=== PATIENT | female | born 1960 | race Caucasian/White ===

== ENCOUNTER 2017-02-08 14:30 | Inpatient (IN) | payer MEDICARE ==
[~2017-02-08] VITALS: Ht 157.5 cm; Wt 81.4 kg
--- NOTE | ~2017-02-08 | CON ---
PATIENT'S NAME: JANN LAUREN [facility] AGE: 56 Y [address] ROOM: [place] [address] LOCATION: GICU ADMIT DATE: 02/08/2017 Consultation DISCHARGE DATE: FAMILY PHYSICIAN: , VENANCIO ATTENDING PHYSICIAN: SNEHA RAMIREZ DATE OF CONSULTATION: 02/09/2017 REFERRING PHYSICIAN: Moreno Medina MD REASON FOR CONSULTATION: Abdominal pain, diarrhea, history of right colectomy status post perforation. HISTORY OF PRESENT ILLNESS: This is a 56-year-old female with past medical history of hypertension, COPD, chronic narcotic dependence as well as history of right colectomy in 2011 from perforation. The patient presented to [facility] with drowsiness, diaphoresis, acute abdominal pain, and diarrhea for the past 48 hours. This was associated with fever and chills as well. She describes her abdominal pain as sharp in character located on the left upper and lower quadrants, also associated with multiple episodes of loose stool without any noticeable blood per her recollection. She denies any associated chest pain, chest pressure, or shortness of breath. In review of the patient's history, she did undergo a right colectomy secondary to perforation in 12/2011; in 01/2015, she did undergo an upper endoscopy with biopsy. Upper GI series and small-bowel series completed in 2011 were also negative for Crohn's. Stool workup has been completed that currently is negative at this time including C. diff. The patient was transferred to [facility] for definitive care. PAST MEDICAL HISTORY: Diverticulosis, COPD, hypertension, hyperlipidemia, incisional hernia, chronic pain syndrome, history of right colectomy secondary to perforation, and status post right colectomy. SOCIAL HISTORY: The patient is a half pack lifelong smoker, occasional alcohol use. She is on prescription narcotics as well as benzodiazepines. FAMILY HISTORY: Significant for multiple strokes in the patient's mother. She denies any known gastrointestinal diseases or cancers. ALLERGIES: ADHESIVE TAPE. CURRENT MEDICATIONS: PATIENT'S NAME: JANN LAUREN [facility] AGE: 56 Y [address] ROOM: [place] [address] LOCATION: GICU ADMIT DATE: 02/08/2017 Consultation DISCHARGE DATE: FAMILY PHYSICIAN: PHYSICIAN, UNKNOWN ATTENDING PHYSICIAN: SNEHA RAMIREZ Please refer to the medication administration record. REVIEW OF SYSTEMS: All-point review of systems was completed. All were negative except for those identified in the history of present illness. PHYSICAL EXAMINATION: GENERAL: A pleasant 56-year-old female, lying in bed, who appears to be in no acute distress. VITAL SIGNS: Temperature 98.7, pulse of 99, respirations of 22, blood pressure 102/62, and oxygen saturations 90% on 2 L. SKIN: [place], warm, and dry. No jaundice. HEENT: Head is normocephalic and atraumatic. Pupils are equal, round, and reactive to light. Sclerae are clear. Nonicteric. Oral mucosa is pink and moist. No thyromegaly. NECK: Soft and supple. CARDIOVASCULAR: Regular. Normal S1 and S2. RESPIRATORY: Respirations even and unlabored. LUNGS: Clear to auscultation. ABDOMEN: Soft. Mildly distended. Tender in the left lower quadrant as well as the left upper quadrant. Incisional hernia present. Bowel sounds are positive. MUSCULOSKELETAL: No muscle weakness or atrophy. EXTREMITY: No edema. NEUROLOGIC: Grossly nonfocal. LABORATORY DATA AND DIAGNOSTIC DATA: White blood cell count of 23.7, hemoglobin of 12.5, hematocrit of 38.1, and platelets of 255. Chemistry panel includes a glucose of 126, BUN of 37, creatinine of 1.7, sodium 137, potassium 4.2, chloride 105, CO2 of 20, albumin of 2.3, AST of 111, ALT of 47, alkaline phosphatase of 161, and total bilirubin is 0.4. CRP of 25.60. KUB also completed, did show air-filled stomach. The stomach does not appear to be distended. No distention in small bowel loops or colon identified. ASSESSMENT AND PLAN: Again, this is a very pleasant 56-year-old female, who was admitted with severe sepsis secondary to possible infectious gastroenteritis. Suspicious for the patient having ischemic versus more likely infectious colitis with guarding. Stool workup has been negative including C. diff, though white blood cell count is elevated. The patient also has a history of right colectomy with perforation. No history of ulcerative colitis or Crohn's disease as the patient did have an upper GI and small bowel series that was negative. At this time, we agree with continuing IV Flagyl and antibiotics. If the patient becomes nauseated or vomits, NG tube should be placed. Also, suspicion for gastroparesis PATIENT'S NAME: JANN LAUREN [facility] AGE: 56 Y [address] ROOM: [address] [address] LOCATION: CU ADMIT DATE: 02/08/2017 Consultation DISCHARGE DATE: FAMILY PHYSICIAN: PHYSICIAN, UNKNOWN ATTENDING PHYSICIAN: SNEHA RAMIREZ secondary to sepsis with the patient's finding of air-filled stomach. Once stable, we do recommend possible sigmoidoscopy versus colonoscopy for further evaluation. We will obtain a KUB in the morning as well as lab. Reglan 10 mg IV push will be given x1 for assistance of the findings of the patient's KUB. Further recommendations to be given over the course of the patient's hospitalization. KAPIL BERG APRN FOR [employer] MD MMF/modl /[id number] d: 02/10/17 1140 t: 02/18/17 0741, CONSULTATION REPORT
--- NOTE | ~2017-02-08 | ENPV ---
Vascular Lower Extremities DVT Study Procedure Demographics Patient Name JANN LAUREN Date of Study 02/09/2017 Patient Number [id number] Gender Female Date of 1960 Age 56 Visit Number [id number] Height Accession Number [id number] Weight Room Number G6231 BSA BMI Referring Deandre Borjas Interpreting Theron Lee MD Physician Physician Physician Ordering Deandre Borjas Workforce Manager Physician [employer] Leia Kennedy T Conclusions Summary No evidence of deep vein thrombosis or superficial thrombophlebitis in the lower extremities bilaterally . Procedure Type of Study: Veins:Lower Extremities DVT Study, Venous Duplex Lower Extremity Bilateral. Indications for Study:Tachycardia. Additional Indications:hypoxia Appropriate Use Criteria:9 Allergies - No known allergies. Patient Status:Routine. Study Location:Inpatient Portable. Technical Quality:Adequate visualization. Velocities are measured in cm/s ; Diameters are measured in cm Right Lower Extremities DVT Study Measurements Right 2D and Doppler Measurements + + + + +------+------+ + !Location !Visualized!Compressibility!Thrombosis!Signal!Reflux!Reflux ! ! ! ! ! ! ! !(sec) ! + + + + +------+------+ + !GSV Thigh !Yes !Yes !None !Phasic!No ! ! + + + + +------+------+ + !Common !Yes !Yes !None !Phasic!No ! ! !Femoral ! ! ! ! ! ! ! + + + + +------+------+ + !Prox !Yes !Yes !None !Phasic!No ! ! !Femoral ! ! ! ! ! ! ! + + + + +------+------+ + !Mid Femoral!Yes !Yes !None !Phasic!No ! ! + + + + +------+------+ + !Dist !Yes !Yes !None !Phasic!No ! ! !Femoral ! ! ! ! ! ! ! + + + + +------+------+ + !Popliteal !Yes !Yes !None !Phasic!No ! ! + + + + +------+------+ + !Gastroc !Yes !Yes !None !Phasic!No ! ! + + + + +------+------+ + !PTV !Yes !Yes !None !Phasic!No ! ! + + + + +------+------+ + !Peroneal !Yes !Yes !None !Phasic!No ! ! + + + + +------+------+ + Left Lower Extremities DVT Study Measurements Left 2D and Doppler Measurements + + + + +------+------+ + !Location !Visualized!Compressibility!Thrombosis!Signal!Reflux!Reflux ! ! ! ! ! ! ! !(sec) ! + + + + +------+------+ + !GSV Thigh !Yes !Yes !None !Phasic!No ! ! + + + + +------+------+ + !Common !Yes !Yes !None !Phasic!No ! ! !Femoral ! ! ! ! ! ! ! + + + + +------+------+ + !Prox !Yes !Yes !None !Phasic!No ! ! !Femoral ! ! ! ! ! ! ! + + + + +------+------+ + !Mid Femoral!Yes !Yes !None !Phasic!No ! ! + + + + +------+------+ + !Dist !Yes !Yes !None !Phasic!No ! ! !Femoral ! ! ! ! ! ! ! + + + + +------+------+ + !Popliteal !Yes !Yes !None !Phasic!No ! ! + + + + +------+------+ + !Gastroc !Yes !Yes !None !Phasic!No ! ! + + + + +------+------+ + !PTV !Yes !Yes !None !Phasic!No ! ! + + + + +------+------+ + !Peroneal !Yes !Yes !None !Phasic!No ! ! + + + + +------+------+ + Impressions Left Impression Enlarged lymph node in left groin measuring 1 x .75 cm. Signature dtt: HARLEY GALLOWAY dtbrooke: 02/09/17 134 Physician Self Edit
--- NOTE | ~2017-02-08 | DS ---
PATIENT'S NAME: SALOMÓNLiv [facility] AGE: 56 Y [address] ROOM: [id number] [place], [place] [address] LOCATION: GICU ADMIT DATE: 02/08/2017 Discharge Summary DISCHARGE DATE: 02/13/2017 FAMILY PHYSICIAN: Yenny Espinoza PA-C ATTENDING PHYSICIAN: Sera Carrera ADMISSION DIAGNOSIS: Severe sepsis secondary to infectious colitis. DISCHARGE DIAGNOSIS: Severe sepsis secondary to infectious colitis. SECONDARY DIAGNOSES: 1. Hypoxic respiratory failure, resolved. 2. Severe sepsis, has resolved. 3. Acute renal failure secondary to sepsis, resolving. 4. Anterior abdominal wall hernia. 5. Anxiety disorder. 6. Tobacco dependence. 7. Chronic pain disorder. PROCEDURES PERFORMED: Flexible sigmoidoscopy February 13, 2017 revealing extensive pseudomembranous colitis. CONSULTATIONS: Dr. Casanova of GI, also General Surgery. PRESENTING COMPLAINTS: The patient is a pleasant 56-year-old female with a history of known hypertension, COPD, and narcotic dependence who presented to [facility] with drowsiness, diaphoresis, abdominal pain, and diarrhea for greater than 48 hours. This was associated with fevers and chills. Prior to transfer, the patient was noted to have a white blood cell count of 41,000, hemoglobin of 14, creatinine of 2.7, and a CAT scan showing left colonic wall thickening. Upon transfer, she was deemed to be in severe sepsis and admitted initially to the ICU for treatment of her acute kidney injury as well as hypoxic respiratory failure on COPD. HOSPITAL COURSE: Upon admission, the patient was initially started on Zosyn with vancomycin and Flagyl and repeat labs were ordered following initial volume resuscitation at outside facility. Cultures were obtained. On hospital day 2, the patient was noted to be improving slowly and changed to Meropenem and vancomycin. C. diff testing was negative. Stool culture also negative. On February 11, the patient was noted to have passed small amount of blood per rectum with slight drop in hemoglobin which could have also been secondary to IV hydration. However, in order to rule out small bowel obstruction with ongoing abdominal pain, a CT was ordered. This showed mild circumferential bowel wall thickening involving descending and sigmoid colon as well as a low anterior abdominal wall hernia containing loops of bowel with [facility]GE: 56 Y [address] ROOM: [id number] [place], [place] [address] LOCATION: GICU ADMIT DATE: 02/08/2017 Discharge Summary DISCHARGE DATE: 02/13/2017 FAMILY PHYSICIAN: Yenny Espinoza PA-C ATTENDING PHYSICIAN: Sera Carrera no evidence of obstruction or bowel wall thickening as well as a previous right hemicolectomy and no evidence of small bowel obstruction. The patient was maintained on Flagyl and transitioned to ertapenem and begun to advance diet on the to clears with improving abdominal pain. The sepsis at this point had resolved. On date of discharge, the patient underwent flexible sigmoidoscopy showing extensive pseudomembranous colitis with rare normal mucosa. Plans at that time per GI were to monitor patient inhouse one more night after transitioning to oral antibiotics to include Levaquin and Flagyl. However, upon discussing this with the patient, she became very tearful stating that she felt much improved, and given ongoing stability of vital signs, decreasing abdominal pain, decreasing of diarrhea, and improving white count and renal function, discussion was had with GI about discharging on the . Ultimately given the patient's desire to discharge, this was a determined plan. The patient was discharged with a 14-day course of Levaquin and Flagyl. Levaquin dosage 750 q.24 hours based on her creatinine clearance of 50 upon discharge just above cut of level with an improving renal function. Creatinine 1.6 on discharge. This will need to be followed up with the PCP early next week with a BMP to ensure adequate dosing. Dr. Casanova will see the patient in GI Clinic in 10 to 14 days as well for followup prior to cessation of antibiotics. CONDITION: Stable. VITAL SIGNS: Last vital signs on the date of discharge, temperature 98.2, pulse 72, respirations 16, blood pressure 111/65, saturating 92% on room air. PERTINENT MEDICATION CHANGES: Upon discharge, the patient's home amlodipine and RAIN inhibitor were both held to be resumed at a later date per PCP as well as new antibiotics as described above. Otherwise, continued all home meds upon discharge. DISCHARGE INSTRUCTIONS: Advance diet as tolerated. Activity as tolerated. FOLLOWUP: With PCP and GI as already established above. TIME: I spent greater than 35 minutes on date of discharge determining care, plan, and preparing for discharge. MD MELY CLIFFORD/nicolasa PATIENT'S NAME: JANN LAUREN [facility] AGE: 56 Y [address] ROOM: [place] [address] LOCATION: CU ADMIT DATE: 02/08/2017 Discharge Summary DISCHARGE DATE: 02/13/2017 FAMILY PHYSICIAN: Yenny Espinoza PA-C ATTENDING PHYSICIAN: Sera Carrera /[id number] d: 02/14/17 0545 t: 02/14/17 1543, DISCHARGE SUMMARY
--- NOTE | ~2017-02-08 | CON ---
PATIENT'S NAME: JANN LAUREN [facility] AGE: 56 Y [address] ROOM: [place] [address] LOCATION: GICU ADMIT DATE: 02/08/2017 Consultation DISCHARGE DATE: FAMILY PHYSICIAN: PHYSICIAN, UNKNOWN ATTENDING PHYSICIAN: SNEHA RAMIREZ A CHIEF COMPLAINT: Fever and diarrhea. HISTORY OF PRESENT ILLNESS: The patient was admitted on 02/08/2017 for sepsis secondary to what was thought to be infectious gastritis/gastroenteritis. Daily abdominal x-rays have been taken with today's x-ray showing possible concern for small bowel obstruction. Surgery team was consulted for this reason. The patient says that she had onset on Friday of generalized abdominal pain, but denies any nausea or vomiting at that time. She did have fever at home. She has had loose stools for the past several days up to a week. She has a history of right colectomy secondary to perforations in 2011, at that time, a negative workup for Crohn's or UC (perforation though to be due to C. Diff). The patient's labs since admission have been slowly improving. Concern for this new small bowel obstruction secondary to radiological findings. The patient reports positive flatus and bowel movement today. PAST MEDICAL HISTORY: 1. Diverticulosis. 2. COPD. 3. Hypertension. 4. Hyperlipidemia. 5. Incisional hernia. 6. Chronic pain syndrome. 7. History of right colectomy. SOCIAL HISTORY: One-half pack per day, lifelong smoker. Occasional alcohol use. FAMILY HISTORY: Mother, strokes. ALLERGIES: ADHESIVE TAPE. CURRENT MEDICATIONS: See medication file. PATIENT'S NAME: JANN LAUREN [facility] AGE: 56 Y [address] ROOM: [id number] [place] [address] LOCATION: GICU ADMIT DATE: 02/08/2017 Consultation DISCHARGE DATE: FAMILY PHYSICIAN: PHYSICIAN, UNKNOWN ATTENDING PHYSICIAN: SNEHA RAMIREZ A REVIEW OF SYSTEMS: GENERAL: Positive fever and chills. Negative changes in weight. HEENT: No acute vision changes. No difficulty swallowing. CARDIAC: No chest pain or palpitations. PULMONARY: Chronic cough and oxygen use. ABDOMEN: Positive for pain and diarrhea, history of right colectomy. EXTREMITIES: No decreased range of motion. NEUROLOGICAL: No focal deficits. LABORATORY DATA: White count 17.9, down from 23.7, hemoglobin 10.3, hematocrit 30.7, platelets 180. Sodium of 130, potassium 3.7, creatinine 2.2. Procalcitonin 60.31 down from 70.5, CRP 25.6, alkaline phosphatase 109, AST 65, ALT 38. Chest x-ray, positive for vascular congestion with hazy bibasilar infrahilar opacities, possibly secondary to pulmonary edema ? CT pending resolution of SOHA for contrast use. PHYSICAL EXAMINATION: VITAL SIGNS: Blood pressure 116/71, heart rate of 102, respirations of 16, O2 saturation 92% on 1 L, temperature 98.0. GENERAL: Pleasant female in no acute distress. SKIN: Dry and pink. No jaundice. HEENT: PERRL. Sclerae nonicteric. Mucous membranes moist. NECK: Soft and supple. CARDIOVASCULAR: Regular rate and rhythm. RESPIRATORY: No increased work of breathing. Clear to auscultation. ABDOMEN: Soft, mild distention. Tenderness noticed along the lower quadrants. Incisional hernia noted, reducible. Bowel sounds present and normal without signs of increased intensity. MUSCULOSKELETAL: Peripheral pulses present x4. No edema. NEUROLOGIC: No focal deficits. ASSESSMENT AND PLAN: A 56-year-old female, admitted for sepsis secondary to a diagnosis of infectious gastroenteritis. Consultation for concern of small-bowel obstruction. 1) Small-bowel obstruction not evident per physical exam findings. X-ray changes maybe noted secondary to right colectomy and ileocecal anastomosis. Recommend CT with oral contrast to further evaluate. We will continue to follow. JACQUELIN JACKSON MD RESIDENT FOR MYA MONROE MD MR/modl PATIENT'S NAME: JANN LAUREN [facility] AGE: 56 Y [address] ROOM: [id number] [place], [place] [address] LOCATION: [facility] ADMIT DATE: 02/08/2017 Consultation DISCHARGE DATE: FAMILY PHYSICIAN: PHYSICIAN, UNKNOWN ATTENDING PHYSICIAN: SNEHA RAMIREZ /[id number] d: 02/10/17 1342 t: 03/05/17 1609, CONSULTATION REPORT
--- NOTE | ~2017-02-08 | HP ---
[facility] 56 [facility] [address] ROOM: [place] [address] LOCATION: GICU ADMIT DATE: 02/08/2017 History & Physical DISCHARGE DATE: FAMILY PHYSICIAN: PHYSICIAN, UNKNOWN ATTENDING PHYSICIAN: SNEHA RAMIREZ DATE OF SERVICE: CHIEF COMPLAINT: Transfer from outside facility with concern of sepsis. HISTORY OF PRESENT ILLNESS: A 56-year-old lady with a past medical history of hypertension and COPD as well as chronic narcotic dependence; presented to the [facility] with drowsiness, diaphoresis, and abdominal pain as well as diarrhea which have been going on for more than 48 hours. Multiple episodes, brown in color without any blood in it. Associated with fever, chills, and diaphoresis. On my encounter, she is drowsy but answering questions appropriately. She states that she does not feel very good at this point. Does complain of abdominal pain which is sharp in character, located in the left lower quadrant, and associated with diarrhea with multiple episodes as mentioned above as well as fever and chills. She on further inquiry denied any shortness of breath but did endorse having sputum production at home. No chest pain or palpitations were reported. She denied any headache or dizziness. No burning on urination reported either. REVIEW OF SYSTEMS: All other systems reviewed and were negative except of what is mentioned in the HPI. PAST MEDICAL HISTORY: Diverticulosis, COPD, hypertension, hyperlipidemia, and incisional hernia as well as chronic pain syndrome. MEDICATIONS: Being reconciled now. ALLERGIES: NO KNOWN DRUG ALLERGIES. SOCIAL HISTORY: The patient is a half pack lifelong smoker. Occasional alcohol use. She is on prescription narcotics as well as benzodiazepine. FAMILY HISTORY: PATIENT'S NAME: XIN JANN [facility] AGE: 56 Y [address] ROOM: [address] [address] LOCATION: GICU ADMIT DATE: 02/08/2017 History & Physical DISCHARGE DATE: FAMILY PHYSICIAN: PHYSICIAN, UNKNOWN ATTENDING PHYSICIAN: SNEHA RAMIREZ Significant for multiple strokes in mom. PHYSICAL EXAMINATION: VITAL SIGNS: Blood pressure 120/69, 72, temperature of 100, and respiratory rate of 20. GENERAL: Very drowsy and diaphoretic, alert and oriented x3 though. HEENT: Head: Atraumatic, normocephalic. Eyes: Nonicteric. Positive pallor. Oropharynx: Very dry mucous membranes. CARDIOVASCULAR: S1, S2. No murmurs, gallops, or rubs. LUNGS: Clear to auscultation bilaterally. ABDOMEN: Soft, tender in the left lower quadrant. Incisional hernia present. Bowel sounds are present, hyperactive though. EXTREMITIES: No clubbing, cyanosis, or edema. PSYCHIATRIC: Flat affect, mood, and speech at this point. NEUROLOGIC: Cranial nerves 2 through 12 are intact. No motor or sensory deficit noted. SKIN: Very dry skin. No blemishes noted. MUSCULOSKELETAL: No muscle tenderness or joint swelling noted. LABORATORY WORK: From outside facility showed a white count of 41,000, hemoglobin of 14, and platelets 327. Sodium 135, potassium 5.0, chloride 89, bicarbonate 21, BUN 32, creatinine of 2.7, calcium of 9.2, and glucose above 100. Troponin first set was 0.036. AST was 141, ALT was 51. Chest x-ray from the outside facility per report from the physician is negative. EKG was negative for any acute ischemic changes. CAT scan was done, which did show left colonic wall thickening. ASSESSMENT: 1. Severe sepsis secondary to unknown etiology at this point, likely from abdominal source. 2. Acute kidney injury. 3. Hyperkalemia. 4. Acute hypoxic respiratory failure. 5. Chronic obstructive pulmonary disease. 6. Chronic respiratory failure. 7. Diarrhea. PLAN: Sepsis protocol. 30 mL/kg of fluids. IV antibiotics including Zosyn, vancomycin, and Flagyl. Obtain official report of the CAT scan. Re-obtain lactic acid level as well as amylase level. Repeat chest x-ray as she had received 1.5 L NS at the outside facility and may be showing some signs of pneumonia there. Obtain all the appropriate blood cultures and sputum cultures per sepsis protocol. We are going to monitor this lady in our unit, PATIENT'S NAME: JANN LAUREN [facility] AGE: 56 Y [address] ROOM: [place] [address] LOCATION: [facility] ADMIT DATE: 02/08/2017 History & Physical DISCHARGE DATE: FAMILY PHYSICIAN: PHYSICIAN, UNKNOWN ATTENDING PHYSICIAN: SNEHA RAMIREZ and further decisions will be made on patient's progress here. MD RODRÍGUEZ PACHECO/carsonl /[id number] D: [id number] T: [id number] HISTORY & PHYSICAL
[~2017-02-08 14:30] MED LIST: ADVAIR 250-501 EACH INH; ATARAX25 MG PO; BUMETANIDE2 MG PO; BUSPAR10 MG PO; CARAFATE1 GM PO; CHANTIX1 MG PO; CIPRO500 MG PO; DEXILANT60 MG PO; DOXYCYCLINE100 MG PO; DULERA 200 MCG/51 EA INH; EFFEXOR XR150 MG PO; EFFEXOR75 MG PO; FLAGYL500 MG PO; FLORASTOR250 MG PO; INDERAL LA60 MG PO; LEVAQUIN500 MG PO; LIPITOR10 M1 PO; MECLIZINE HCL25 MG PO; MOBIC7.5 MG PO; MORPHINE SULFAT15 M1 PO; MS CONTIN60 MG PO; NEURONTIN600 MG PO; NORVASC5 MG PO; OXYGEN M-15 INH; PERCOCET 7.5-31 EACH PO; PREFERA OB TAB1 EACH PO; PRINIVIL OR ZES10 MG PO; PROTONIX40 MG PO; ROBAXIN500 MG PO; ROBAXIN750 MG PO; SAVELLA50 MG PO; SEROQUEL50 MG PO; VALIUM5 MG PO; VITAMIN E400 UNI2 PO; WELLBUTRIN100 MG PO; ZINC PO
[2017-02-08 16:09] LABS: BICARBONATE 24.7 mmol/L (18.0-23.0); LACTATE 1.2 mEq/L (0.50-1.60); PCO2 48 mmHg (35-45); PO2 59 mmHg (80-90)
[2017-02-08 16:27] LABS: BLOOD URINE 250 /UL (NEGATIVE); COLOR URINE YELLOW (YELLOW); GLUCOSE URINE 50 mg/dL (NEGATIVE); KETONE URINE 5 mg/dL (NEGATIVE); LEUKOCYTES URINE 25 /UL (NEGATIVE); NITRITE URINE NEGATIVE (NEGATIVE); PROTEIN URINE 30 mg/dL (NEGATIVE); TURBIDITY URINE 2+ (CLEAR); UROBILINOGEN URINE 1 mg/dL (NORMAL)
[2017-02-08 16:36] LABS: AMORPHOUS URINE 2+ (NEGATIVE); BACTERIA URINE MANY (NEGATIVE); EPITHELIAL URINE 0-2 #/HPF (NEGATIVE); RBC URINE 0-2 #/HPF (NEGATIVE); WBC URINE 0-2 #/HPF (NEGATIVE)
[2017-02-08] MEDS ORDERED: VALIUM5 MG PO (16:50)
[2017-02-08] MEDS ORDERED: EFFEXOR XR150 MG PO (16:51)
[2017-02-08] MEDS ORDERED: TIZANIDINE HCL2 M1 PO (16:54)
[2017-02-08] MEDS ORDERED: ORPHENADRINE C100 MG PO (16:55)
[2017-02-08] MEDS ORDERED: ABILIFY2 MG PO (16:57)
[2017-02-08] MEDS ORDERED: PERCOCET 7.5-31 EACH PO (16:58)
[2017-02-08] MEDS ORDERED: MS CONTIN60 MG PO (17:00)
[2017-02-08] MEDS ORDERED: MS CONTIN30 MG PO (17:01)
[2017-02-08 17:14] LABS: INR - (THERAPEUTIC) 1.07 (0.92-1.07); PROTIME 11.2 SECONDS (9.8-11.4)
[2017-02-08 17:25] LABS: ALBUMIN 2.8 gm/dL (3.5-5.0); CREATININE 2.2 mg/dL (0.5-1.1); TOTAL BILIRUBIN 0.5 mg/dL (0.0-1.5); TOTAL PROTEIN 7.1 g/dL (6.0-8.4)
[2017-02-08 17:26] LABS: ANION GAP 16.7 (10.0-19.0); POTASSIUM 4.7 mMol/L (3.7-5.1)
[2017-02-08 18:14] LABS: HEMATOCRIT 42.2 % (33.0-46.0); HEMOGLOBIN 13.4 g/dL (10.0-15.0); MCH 27.7 pg (27.0-34.0); MCHC 31.8 gm/dL (32.0-36.5); MCV 87.4 fl (83.0-98.0); MPV 10.6 fl (9.4-12.4); PLATELET COUNT 280 K/uL (150-450); RDW-CV 16.2 % (11.9-14.6)
[2017-02-08 18:18] LABS: RBC 4.83 M/uL (3.50-5.50); WBC 32.2 K/uL (4.0-11.0)
[2017-02-08 18:50] LABS: LYMPHOCYTE % 3 %; MONOCYTE # 1.9 K/uL (0.0-1.0); SEGMENTED NEUTROPHIL % 31 %
[2017-02-08 18:51] LABS: BANDED NEUTROPHILS % 59 %
--- NOTE | 2017-02-08 19:39 | NUR ---
Patient admitted from [facility]. Patient had reported to daughter that she did not feel well yesterday, that she had been having diarrhea and generally not feeling well. Today her family members reported that she was very lethargic and not feeling well. She drove herself into the ER where they worked her up for sepsis and transferred her here. Narcan was given at the prior facility with no response to lethargy. IV antibiotics started at prior ER. No reported allergies other than adhesive tapes. Patient very lethargic at this time and unable to provide medical history herself, daughter at bedside to provide medical history. Patient admitted with lyn catheter in place. Patient admitted with IV's in place to R) AC and L) wrist.
[2017-02-08 21:49] LABS: BICARBONATE 24.3 mmol/L (18.0-23.0); LACTATE 1.3 mEq/L (0.50-1.60); PCO2 43 mmHg (35-45); PO2 59 mmHg (80-90)
[2017-02-09 00:23] LABS: HEMATOCRIT 41.1 % (33.0-46.0); HEMOGLOBIN 13.4 g/dL (10.0-15.0); MCH 28.1 pg (27.0-34.0); MCHC 32.6 gm/dL (32.0-36.5); MCV 86.2 fl (83.0-98.0); MPV 10.3 fl (9.4-12.4); PLATELET COUNT 275 K/uL (150-450); RBC 4.77 M/uL (3.50-5.50)
[2017-02-09 00:25] LABS: WBC 27.9 K/uL (4.0-11.0)
[2017-02-09 00:35] LABS: ANION GAP 17.4 (10.0-19.0); CALCIUM 8.1 mg/dL (8.5-10.5); CREATININE 1.8 mg/dL (0.5-1.1); POTASSIUM 4.4 mMol/L (3.7-5.1)
[2017-02-09 01:12] LABS: ABSOLUTE NEUTROPHIL CT (ANC) 25.1 K/uL (1.8-7.8); BANDED NEUTROPHIL # 12.8 K/uL (0.0-0.1); BANDED NEUTROPHILS % 46 %; LYMPHOCYTE # 0.6 K/uL (0.8-4.0); LYMPHOCYTE % 2 %; SEGMENTED NEUTROPHIL # 12.3 K/uL (1.8-7.8); SEGMENTED NEUTROPHIL % 44 %
[2017-02-09 05:28] LABS: HEMATOCRIT 40.7 % (33.0-46.0); HEMOGLOBIN 13.1 g/dL (10.0-15.0); MCH 27.9 pg (27.0-34.0); MCHC 32.2 gm/dL (32.0-36.5); MCV 86.6 fl (83.0-98.0); MPV 10.7 fl (9.4-12.4); PLATELET COUNT 267 K/uL (150-450); WBC 26.8 K/uL (4.0-11.0)
[2017-02-09 05:48] LABS: ALBUMIN 2.3 gm/dL (3.5-5.0); ANION GAP 16.2 (10.0-19.0); CALCIUM 8.1 mg/dL (8.5-10.5); CREATININE 1.7 mg/dL (0.5-1.1); POTASSIUM 4.2 mMol/L (3.7-5.1); TOTAL BILIRUBIN 0.4 mg/dL (0.0-1.5); TOTAL PROTEIN 6.4 g/dL (6.0-8.4)
[2017-02-09 06:46] LABS: ABSOLUTE NEUTROPHIL CT (ANC) 24.9 K/uL (1.8-7.8); BANDED NEUTROPHILS % 56 %; LYMPHOCYTE # 0.8 K/uL (0.8-4.0); LYMPHOCYTE % 3 %; MONOCYTE # 0.8 K/uL (0.0-1.0); SEGMENTED NEUTROPHIL # 9.9 K/uL (1.8-7.8); SEGMENTED NEUTROPHIL % 37 %
--- NOTE | 2017-02-09 06:59 | NUR ---
Significant Event: Disoriented to year. Denies numbness/tingling and follows all commands. Multiple antibiotics through peripheral IVs received. New order for oral vancomyocin as well. Requested pain medication during last assessment and home meds initiated. LR at 125/hr. Hypertensive 150s SBP and tachycardia 100-110s. 99-100.4 temperature. Large diarrhea stool incontinence x1. Follow up:
[2017-02-09 14:14] LABS: HEMATOCRIT 38.1 % (33.0-46.0); HEMOGLOBIN 12.5 g/dL (10.0-15.0); MCHC 32.8 gm/dL (32.0-36.5); MCV 85.2 fl (83.0-98.0); MPV 10.5 fl (9.4-12.4); PLATELET COUNT 255 K/uL (150-450); RBC 4.47 M/uL (3.50-5.50); RDW-CV 15.9 % (11.9-14.6)
[2017-02-09 14:15] LABS: WBC 23.7 K/uL (4.0-11.0)
[2017-02-09 14:40] LABS: LYMPHOCYTE # 0.7 K/uL (0.8-4.0); LYMPHOCYTE % 3 %; MONOCYTE # 1.2 K/uL (0.0-1.0); SEGMENTED NEUTROPHIL # 5.2 K/uL (1.8-7.8); SEGMENTED NEUTROPHIL % 22 %
[2017-02-09 14:41] LABS: ABSOLUTE NEUTROPHIL CT (ANC) 21.8 K/uL (1.8-7.8); BANDED NEUTROPHIL # 16.6 K/uL (0.0-0.1); BANDED NEUTROPHILS % 70 %
--- NOTE | 2017-02-09 15:44 | NUR ---
Significant Event: Patient alert and oriented x3. Drowsy but easily awakens. Pupils 3mm, brisk. Denies numbness/tingling. Hypotensive towards last assessment, aware. All other VSS, on 2L O2. Afebrile throughout shift. Fleming patent and draining aniyah urine. Abdominal pain reported, diarrhea throughout shift. Imodium given PRN. C-diff negative. Generalized small scabs throughout body, normal for patient. IV to R) AC, saline locked. IV to L) wrist infusing intermittent antibiotics. Follow up: Cardiac diet. Up with 1PA to BSC.
[2017-02-10 02:45] LABS: HEMATOCRIT 30.7 % (33.0-46.0); HEMOGLOBIN 10.3 g/dL (10.0-15.0); MCH 28.1 pg (27.0-34.0); MCHC 33.6 gm/dL (32.0-36.5); MCV 83.7 fl (83.0-98.0); MPV 10.1 fl (9.4-12.4); RBC 3.67 M/uL (3.50-5.50); RDW-CV 15.9 % (11.9-14.6)
[2017-02-10 02:47] LABS: PLATELET COUNT 180 K/uL (150-450); WBC 17.9 K/uL (4.0-11.0)
[2017-02-10 03:11] LABS: ALBUMIN 2.7 gm/dL (3.5-5.0); CALCIUM 8.2 mg/dL (8.5-10.5); CREATININE 2.2 mg/dL (0.5-1.1); POTASSIUM 3.7 mMol/L (3.7-5.1); TOTAL PROTEIN 6.1 g/dL (6.0-8.4)
[2017-02-10 03:12] LABS: ANION GAP 13.7 (10.0-19.0); TOTAL BILIRUBIN 0.5 mg/dL (0.0-1.5)
[2017-02-10 04:03] LABS: ABSOLUTE NEUTROPHIL CT (ANC) 16.3 K/uL (1.8-7.8); BANDED NEUTROPHIL # 6.1 K/uL (0.0-0.1); BANDED NEUTROPHILS % 34 %; LYMPHOCYTE # 0.5 K/uL (0.8-4.0); LYMPHOCYTE % 3 %; MONOCYTE # 1.1 K/uL (0.0-1.0); SEGMENTED NEUTROPHIL # 10.2 K/uL (1.8-7.8); SEGMENTED NEUTROPHIL % 57 %
--- NOTE | 2017-02-10 04:57 | NUR ---
Significant Event: Alert and oriented x3. 101-127 systolic blood pressure and on 1-2L O2 NC. Physician notified for low urine output and albumin iv given x2 and normal saline. Ambulates 1A to commode and has frequent diarrhea. G.I physician spoke with patient last night. Receives scheduled IV antibiotics. Follow up:
[2017-02-10] MEDS ORDERED: NEURONTIN600 MG PO (11:05)
--- NOTE | 2017-02-10 14:15 | NUR ---
Introduced self and role of care management to patient. Patient lives in [place], [place] with her mother. She says her earlier this month unexpectedly from a heart attack. She says her mother has been living with them and they were taking care of her. She says it has been a rough month. She has 2 daughters and one of them lives about 30 minutes from her. She says she has been her rock and is helping her. She does have an O2 concentrator at home as she says one time in the past she needed O2 for a couple of months, but has not used O2 recently. She plans home when ready for discharge. Will follow.
--- NOTE | 2017-02-10 16:14 | NUR ---
Shift Summary: PATIENT A&Ox3. DROWSY AT TIMES. DENIES NUMBNESS AND TINGLING AND MOVES ALL EXTREMITIES WITH PURPOSE. TACHYCARDIC AT TIMES, REST OF VITAL SIGNS STABLE. PATIENT ON 1L OXYGEN VIA NC. LUNGS CLEAR AND DIMINISHED. PATIENT REPORTS ABDOMINAL PAIN IN LEFT LOWER QUADRANT. ABDOMEN IS DISTENDED AND RIGID. THREE LOOSE STOOLS THIS SHIFT. LR RUNNING AT 125 IN L) HAND. R) AC SALINE LOCKED. PAIN MEDICATION GIVEN AT 1200 FOR HEADACHE. PATIENTS URINE IS DARK YELLOW AND CLOUDY. 600 OUT OF CALVIN. PATIENT IS SBA TO COMMODE. Follow Up: CT Scan w/contrast. IV ABX CONTINUE.
[2017-02-10 16:26] LABS: ANION GAP 12.6 (10.0-19.0); CALCIUM 7.9 mg/dL (8.5-10.5); POTASSIUM 3.6 mMol/L (3.7-5.1)
--- NOTE | 2017-02-10 17:52 | NUR ---
Read, reviewed and agree with Tara Pritchard RN charting.
--- NOTE | 2017-02-11 04:23 | NUR ---
Significant Event: A/OX3. Denies N/T. Moderate, equal strength. Denies N/V or dizziness. Abdomen tender - more pain to left quadrants than right quadrants. Abdominal protrusion to midline/umibilicus. Bowel sounds active. Able to eat and keep down 50% of supper. Intake: 3600. Output: 1800. Had green, loose stools x2. SBP in 90s-100s. MAPs 70s-80s. IV to left forearm running normal saline at 125ml/hr. Intermittent invanz and flagyl. IV to right AC saline locked. Fleming catheter in for accurate I&Os. Lungs clear and diminished on 1L of O2. Tried room air but SATs dropped into mids 80s within 15mins. Nicotine patch to right arm. Cardiac diet. 40meq of oral potassium given. Up SBA to commode. Follow up:
[2017-02-11 05:41] LABS: HEMATOCRIT 27.8 % (33.0-46.0); MCH 26.9 pg (27.0-34.0); MCHC 32.4 gm/dL (32.0-36.5); MCV 83.2 fl (83.0-98.0); MPV 9.7 fl (9.4-12.4); RBC 3.34 M/uL (3.50-5.50); RDW-CV 15.8 % (11.9-14.6); WBC 13.7 K/uL (4.0-11.0)
[2017-02-11 05:47] LABS: PLATELET COUNT 141 K/uL (150-450)
[2017-02-11 05:57] LABS: ANION GAP 11.7 (10.0-19.0); CALCIUM 8.1 mg/dL (8.5-10.5); CREATININE 1.9 mg/dL (0.5-1.1); POTASSIUM 3.7 mMol/L (3.7-5.1)
[2017-02-11 06:11] LABS: ABSOLUTE NEUTROPHIL CT (ANC) 12.9 K/uL (1.8-7.8); BANDED NEUTROPHIL # 1.2 K/uL (0.0-0.1); BANDED NEUTROPHILS % 9 %; LYMPHOCYTE # 0.4 K/uL (0.8-4.0); LYMPHOCYTE % 3 %; MONOCYTE # 0.4 K/uL (0.0-1.0); SEGMENTED NEUTROPHIL # 11.7 K/uL (1.8-7.8); SEGMENTED NEUTROPHIL % 85 %
--- NOTE | 2017-02-11 14:52 | NUR ---
Significant Event:PT IS AAOX3. PERRLA. NO C/O NUMBNESS OR TINGLING. CLEAR AND DIMINSIHED LUNG SOUNDS ON 1L. NO EDEMA GOOD PULSES. ABDOMEN IN TENDER TO LEFT SIDE. RATE PAIN FROM 8-10. STATES THIS IS A NORMAL FOR HER. REFUSED FURTHER PAIN MEDS. CALVIN DRAINING YELLOW CLOUDY URINE. IV L) WRIST AND R)AC. IVF RUNNING. HAD CT ABD/PELVIS TODAY. AWAITING RESULTS. Follow up:MONITOR PAIN
--- NOTE | 2017-02-12 05:05 | NUR ---
Significant Event: Patient alert and oriented. Denies any numbness or tingling. VSS. BP's in the 110's to 120's. Abdomen tender on L) side. Pain rated between 8-10. Refused Noroflex. Took PRN and scheduled pain medicine. Fleming patent and draining yellow cloudy urine. 1850 out. X3 bm's. Does have some hemorrhoids starting. Saline lock to R) AC and Normal saline running at 125 mls/hr in L) wrist. Cooperative with cares. Follow up:
[2017-02-12 05:44] LABS: HEMATOCRIT 27.4 % (33.0-46.0); MCH 27.8 pg (27.0-34.0); MCHC 32.8 gm/dL (32.0-36.5); MCV 84.6 fl (83.0-98.0); MPV 10.6 fl (9.4-12.4); PLATELET COUNT 137 K/uL (150-450); RBC 3.24 M/uL (3.50-5.50); RDW-CV 15.6 % (11.9-14.6); WBC 8.7 K/uL (4.0-11.0)
[2017-02-12 06:03] LABS: ANION GAP 11.9 (10.0-19.0); CALCIUM 8.3 mg/dL (8.5-10.5); CREATININE 1.8 mg/dL (0.5-1.1); POTASSIUM 3.9 mMol/L (3.7-5.1)
[2017-02-12 06:12] LABS: ABSOLUTE NEUTROPHIL CT (ANC) 7.2 K/uL (1.8-7.8); BANDED NEUTROPHIL # 0.3 K/uL (0.0-0.1); BANDED NEUTROPHILS % 3 %; LYMPHOCYTE # 0.8 K/uL (0.8-4.0); LYMPHOCYTE % 9 %; MONOCYTE # 0.6 K/uL (0.0-1.0); SEGMENTED NEUTROPHIL % 80 %
--- NOTE | 2017-02-12 16:04 | NUR ---
Significant Event: Patient is alert and oriented x3. PERRLA. Follows commands. Appropriate affect. Denies SINCLAIR. Denies N/T. VSS- Hypotensive SBP 105-111, HR 70-81. Lungs are clear and slightly diminished in the bases. 1L O2. Tried to wean off, but patient sats would drop lower that 88%. Goal is to keep O2 88-92%. SR. Generalized scabs. Moderate equal strength throughout. Pulses palpable. Bowel sounds are hypoactive. Abdomen is firm, distended. Hernia to midline (5 years old). Tender with palpation. LUQ and LLQ are worse. Perucssion is tympanic in upper quandrants and dull in the lower. Liquid stool- Green. Some blood noted from hemorrhoids. Plan is to begin bowel prep tonight and a colonostomy in AM. Possible discharge tomorrow. Pleasant and cooperative with cares. Follow up:
--- NOTE | 2017-02-13 03:46 | NUR ---
Significant Event:Patient alert and ox3. Up with STBA. Moves all extremeties spontaneously and to command. Pupils equal and reactive. C/o pain to abdomen. Minimal relief with pain medication. Did give Percocet at 0314. Plan for colonscopy today. NPO at 0500. Go lytley given this shift. BM is watery, but still dark. PIV x2, to rt antecubital and left hand. Left hand infusing NS at 125ml/hr and intermittent ATB. No tele per order. Some hypotension with SBP in the 90's. Follow up:Colonscopy today.
[2017-02-13 06:24] LABS: ANION GAP 14.1 (10.0-19.0); CALCIUM 8.8 mg/dL (8.5-10.5); CREATININE 1.6 mg/dL (0.5-1.1); POTASSIUM 4.1 mMol/L (3.7-5.1)
--- NOTE | 2017-02-13 07:56 | NUR ---
PT SCREENED D/T LOS. EST NEEDS: [id number] KCALS, 81-97 GM PROTEIN, 1 ML/KCAL FLUIDS. INTAKE IS ADEQUATE. POSSIBLE DISCHARGE TODAY. WILL ASSIST NEEDED.
--- NOTE | 2017-02-13 11:12 | NUR ---
1030 PATIENT OFF UNIT WITH TRANSPORT TO ENDOSCOPY FOR [facility]. MD NAJERA HAS OK'D GIVING MEDICATION AFTER SHE RETURNS FROM [facility].
--- NOTE | 2017-02-13 11:13 | NUR ---
0910 CALLED PHARMACY TO SEE IF MEDS COULD BE RETIMED OR JUST GIVEN AFTER RETURN FROM [facility]. PHARMACY HAS OK'D TO GIVE MEDICATIONS WHEN RETURNED FROM [facility]. WILL ALSO CHECK WITH .
--- NOTE | 2017-02-13 11:14 | NUR ---
5067 SPOKE WITH KAPIL BERG, NURSE PRACTITIONER, ABOUT WHETHER TO HOLD MEDICATIONS GIVEN WITH WATER OR TO WAIT TILL PATIENT RETURNED. SHE SAID TO HOLD MEDICATIONS AND GIVE AT LATER TIME. RN WILL CALL PHARMACY ALSO.
--- NOTE | 2017-02-13 12:56 | NUR ---
1240 PATIENT BACK ON UNIT FROM [facility] WITH TRANSPORTATION.
--- NOTE | 2017-02-13 15:10 | NUR ---
1510 1100 ASSESSMENT WAS COMPLETED BEFORE PATIENT LEFT FLOOR AT 1030.
--- NOTE | 2017-02-13 15:11 | NUR ---
1510 MD NAJERA IS FILLING OUT DISCHARGE PAPERWORK.
[2017-02-13] MEDS ORDERED: LEVAQUIN750 MG PO (16:17)
[2017-02-13] MEDS ORDERED: FLAGYL500 MG PO (16:17)
--- NOTE | 2017-02-13 18:59 | NUR ---
1755 PATIENT WAS AAOX3. SHE FOLLOWS COMMANDS AND MOVES ALL EXTREMITIES. SHE IS ON 2L WHILE SLEEPING SATING IN LOW 90S. PIV X2 (LEFT HAND AND RIGHT AC). SHE GETS UP TO TOLIET TO VOID. SHE IS NPO FOR COLONOSCOPY AND HAS HAD [id number] GETS UP TO VOID. STILL BROWN TINT TO IT AFTERWARDS BUT MD DID NOT WANT TO DO ENEMA. SHE HAS SCATTERED SCABS ALL OVER HER BODY. HE ABDOMINAL AREA IS SORE TO TOUCH. SHE IS CALM AND COOPERATIVE. PATIENT IS DISCHARGING TO HOME. TRANSPORTATION IS TAKING HER DOWNSTAIRS AND HER DAUGHTER IS DRIVING HER HOME. BOTH PIV WERE D/C'D-NO BLEEDING OR REDNESS. PERSCRIPTIONS WERE GIVEN TO HER AND SHE WAS SHOWN SHE HAS AN APPOINTMENT WITH MD [facility] ON FEBRUARY 28. SHE IS TO FOLLOW UP WITH HER PRIMARY MD.
[2017-03-05] MEDS ORDERED: ROBAXIN750 MG PO (10:24)
[2017-03-05] MEDS ORDERED: QUESTRAN PACKET4 GM PO (10:25)
[2017-03-05] MEDS ORDERED: K-TAB ER20 MEQ PO (10:26)
== END 2017-02-13 18:30 | disposition disaster alternative care site (69) | DRG 871 ==
LOC: GICU 15:32
PROVIDERS: Internal Medicine; ADMIT Internal Medicine
PROC: 0DBN8ZX Excision of Sigmoid Colon, Via Natural or Artificial Opening Endoscopic, Diagnostic (ICD-10-PCS; principal; 2017-02-13)
DX: A41.9 Sepsis, unspecified organism (principal); J96.21 Acute and chronic respiratory failure with hypoxia; N17.9 Acute kidney failure, unspecified; K55.9 Vascular disorder of intestine, unspecified; A09 Infectious gastroenteritis and colitis, unspecified; R65.20 Severe sepsis without septic shock; E78.5 Hyperlipidemia, unspecified; E87.5 Hyperkalemia; I10 Essential (primary) hypertension; J44.9 Chronic obstructive pulmonary disease, unspecified; K43.9 Ventral hernia without obstruction or gangrene; F41.9 Anxiety disorder, unspecified; F17.210 Nicotine dependence, cigarettes, uncomplicated; G89.29 Other chronic pain
CPT/HCPCS: C9113; J0744; J1335; J1644; J2185; J2765; J3370; J7030; J7040; J7050; J7120; P9047

== ENCOUNTER → 2017-02-28 | Outpatient (CLI) | payer MEDICARE ==
[~2017-02-28] MED LIST changes: +ABILIFY2 MG PO; +K-TAB ER20 MEQ PO; +LEVAQUIN750 MG PO; +MS CONTIN30 MG PO; +ORPHENADRINE C100 MG PO; +QUESTRAN PACKET4 GM PO; +TIZANIDINE HCL2 M1 PO
== END ==
LOC: LGSMG 16:18
DX: R19.7 Diarrhea, unspecified (principal)

== ENCOUNTER → 2017-03-06 | Day surgery (SDC) | payer MEDICARE ==
[~2017-03-06] VITALS: Ht 157.5 cm; Wt 67.8 kg
== END | disposition disaster alternative care site (69) ==
LOC: GPOC 03-05 13:00 → GEND 09:13 → GPOC 13:00
PROC: 0DBN8ZX Excision of Sigmoid Colon, Via Natural or Artificial Opening Endoscopic, Diagnostic (ICD-10-PCS; principal; 2017-03-06)
DX: K51.90 Ulcerative colitis, unspecified, without complications (principal); M19.90 Unspecified osteoarthritis, unspecified site; K21.9 Gastro-esophageal reflux disease without esophagitis; F41.9 Anxiety disorder, unspecified; F32.9 Major depressive disorder, single episode, unspecified; I10 Essential (primary) hypertension; E78.00 Pure hypercholesterolemia, unspecified; G89.4 Chronic pain syndrome; G43.909 Migraine, unspecified, not intractable, without status migrainosus; Z90.49 Acquired absence of other specified parts of digestive tract; Z90.710 Acquired absence of both cervix and uterus; Z98.890 Other specified postprocedural states; Z79.899 Other long term (current) drug therapy
CPT/HCPCS: J2001; J7030